=== PATIENT | male | born 1945 | race Caucasian/White ===

== ENCOUNTER → 2024-01-14 08:50 | Outpatient (REF) | payer BC, SELFPAY | LOC: RAD 08:50 | PROVIDERS: ATTENDING PHYSICIAN Otolaryngology; FAMILY PHYSICIAN Internal Medicine | DX: R13.10 Dysphagia, unspecified (principal) | CPT/HCPCS: 74221 ==

== ENCOUNTER 2024-10-17 06:27 | Day surgery (SDC) | payer BC, SELFPAY | END 2024-10-17 09:55 | disposition home or self-care (01) | LOC: GI 06:27 | PROVIDERS: ATTENDING PHYSICIAN Internal Medicine Gastroenterology; FAMILY PHYSICIAN Internal Medicine | DX: K31.7 Polyp of stomach and duodenum (principal); K31.89 Other diseases of stomach and duodenum; R13.10 Dysphagia, unspecified; R12 Heartburn | CPT/HCPCS: 43239; 88305; 88342 ==

== ENCOUNTER 2024-11-07 11:19 | Emergency (ER) | payer BC, SELFPAY ==
[2024-11-07 11:35] VITALS: BP 142/77
--- NOTE | 2024-11-07 13:03 | ED.GENMED ---
History of Present Illness
<FELICE Jensen - Last Filed: 11/07/24 13:04>
General
Chief Complaint: Male Genito-Urinary Symptoms
Time Seen by Provider: 11/07/24 13:03
<Santiago Sams DO - Last Filed: 11/07/24 13:31>
General
Source: patient
Exam Limitations: none
History of Present Illness
History of Present Illness:
See MDM
Past History
<FELICE Jensen - Last Filed: 11/07/24 13:04>
Past History
ED Past Medical History: Arrthythmia (Atrial fibrillation), CAD, Cancer (Renal and prostate), GERD and Hypothyroidism
Social History
Tobacco: Non-smoker
Alcohol: None
Drug: None
Phy Exam
<Santiago Sams, DO - Last Filed: 11/07/24 13:31>
Physical Exam
Physical Exam:
See MDM
Course
<FELICE Jensen - Last Filed: 11/07/24 13:04>
Orders/Labs/Results
Orders:
Orders
11/07/24 11:38
US Scrotum Urgent
Comment:
Reason For Exam: pain
11/07/24 13:12
Urinalysis Reflex To Culture Urgent
Date Specimen was Collected: 11/07/24
Time Specimen was Collected: 13:11
Vital Signs
Initial and Last Documented VS:
Initial Vital Signs
Temp Pulse Resp BP Pulse Ox
97.8 F 69 18 142/77 99
11/07/24 11:35 11/07/24 11:35 11/07/24 11:35 11/07/24 11:35 11/07/24 11:35
Last Documented Vital Signs
Temp Pulse Resp BP Pulse Ox
97.8 F 69 18 142/77 99
11/07/24 11:35 11/07/24 11:35 11/07/24 11:35 11/07/24 11:35 11/07/24 11:35
<Santiago Sams, DO - Last Filed: 11/07/24 13:31>
Orders/Labs/Results
Orders:
Orders
11/07/24 11:38
US Scrotum Urgent
Comment:
Reason For Exam: pain
11/07/24 13:12
Urinalysis Reflex To Culture Urgent
Date Specimen was Collected: 11/07/24
Time Specimen was Collected: 13:11
Vital Signs
Initial and Last Documented VS:
Initial Vital Signs
Temp Pulse Resp BP Pulse Ox
97.8 F 69 18 142/77 99
11/07/24 11:35 11/07/24 11:35 11/07/24 11:35 11/07/24 11:35 11/07/24 11:35
Last Documented Vital Signs
Temp Pulse Resp BP Pulse Ox
97.8 F 69 18 142/77 99
11/07/24 11:35 11/07/24 11:35 11/07/24 11:35 11/07/24 11:35 11/07/24 11:35
<Santiago Sams, DO - Last Filed: 11/07/24 13:31>
MDM/Problems Addressed
Differential Diagnosis Includes:
HPI and MDM Narrative:
79-year-old male presenting with left testicle pain. Has been ongoing for the past several days. He called his PCP and was sent to the emergency department. He denies any pain with defecation or trouble going. He denies any urinary symptoms as
well.
On exam, he does have mild tenderness to the left epididymis and inguinal area. There is no clinical signs of torsion. Symptoms. scrotal ultrasound ordered prior to my evaluation
Physical exam
General: Well appearing and non-toxic
HEENT: protecting airway
Neck: appears supple
CV: No evidence of cyanosis
Resp: No accessory muscle use
Abd: Non-distended
: Mild tenderness left epididymis and inguinal canal. No skin changes. No clinical signs of torsion
Extremities: No deformities
Neuro: alert
Psych: Normal affect
Skin: Intact
Problems Addressed including Acute and Chronic Conditions affecting care:
1. Left testicle pain
Acuity: acute
Prognosis: stable
Details: Ultrasound ordered to rule out any evidence of torsion versus epididymitis
Updates
Ultrasound negative for acute pathology. Given the pain in the inguinal canal, discussed likely hernia and follow-up with surgery. We discussed stool softeners and return precautions
Differential Diagnosis (but not limited to): Discal torsion, epididymitis, inguinal hernia
Testing considered: CT abdomen/pelvis
Drug therapy (if applicable): OTC meds, please see d/c instruction regarding Rx drugs
Amount and/or Complexity of Data Reviewed
Clinical info obtained from: Patient
External data reviewed: N/A
Labs I independently reviewed (but not limited to): Urinalysis negative
Radiology: Ultrasound report reviewed
Pulse Ox: not hypoxic
EKG independently reviewed: N/A
Crusher Loader Operator: N/A
Critical Care: N/A
Risk of Complication:
Social Determinants of health: Good social support
Discussed with other providers: N/A
Escalation of Care includes Admit/Obs: After being observed in the Emergency Department, pt stable for discharge.
Occasional wrong word or 'sound a like' substitutions may have occurred due to the inherent limitations of voice recognition software. Read the chart carefully and recognize, using context, where substitutions have occurred.
<Santiago Sams, DO - Last Filed: 11/07/24 13:31>
*Critical Care Note
Total Time (30-74mins, 75-104mins- exclusive of procedures): Not Applicable
ED Attending Note
<FELICE Jensen - Last Filed: 11/07/24 13:04>
-
Portions of this chart may have been created with voice recognition software.� Occasional wrong word or��sound alike� substitutions may have occurred due to the inherent limitations of voice recognition software.
Discharge Plan
Departure
Patient Disposition: Home (Routine Discharge)
Date of Disposition: 11/07/24
Time of Disposition: 13:28
Patient with high blood pressure during this ER visit?: Yes
Discharge Problem:
Left groin pain
Instructions: BLOOD PRESSURE
Prescriptions:
No Action
levothyroxine 88 MCG tablet
88 mcg PO DAILY
tamsulosin 0.4 MG capsule
0.4 mg PO QPM
gabapentin 100 MG capsule
200 mg PO BID
cholecalciferol (vitamin D3) 1,000 UNITS tablet
1,000 units PO DAILY
clopidogrel 75 MG tablet
75 mg PO DAILY Qty: 90 3RF
loratadine 10 mg Tablet
10 mg PO DAILY
rosuvastatin [Crestor] 20 mg Tablet
20 mg PO DAILY
pantoprazole 40 MG tablet,delayed release (DR/EC)
40 mg PO QPM
Eliquis 5 MG tablet
5 mg PO BID Qty: 0 0RF
Rx Instructions:
Resume tonight 10/09 at 10:00PM
nitroglycerin 0.4 MG tablet, sublingual
0.4 mg sublingual [id number] PRN (Reason: chest pain) Qty: 25 2RF
Referrals:
Reinier Murphy I., [Family Provider] -
Alexys Chavez MD [Active] -
Activity Restrictions/Additional Instructions:
Please return for any worsening symptoms.
You may return at any time if you have further concerns.
Please follow up with your doctor at the first available appointment, preferably this week.
Thank you for choosing [facility].
Please follow-up with the surgeon to further evaluate your groin pain. This could indicate a small hernia.
The ultrasound report: No sonographic evidence for testicular torsion, orchitis, or epididymitis.
Small right-sided varicocele.
1.5 cm cyst within the right epididymal head.
Interventions
Interventions:
*Risk Screen - Suicide Last Done: 11/07/24 11:35
*General Assessment Last Done: 11/07/24 11:35
*Neglect/Abuse Screening Last Done: 11/07/24 11:35
*ED COVID-19 Vaccine History Last Done: 11/07/24 11:35
ED-Male Genitourinary Assessment Last Done: 11/07/24 13:09
Discharge Date and Time
Print Language: NEPALI
[2024-11-07 13:21] LABS: Urine Albumin Negative (Neg - Trace); Urine Bilirubin Negative (Negative); Urine Character Clear (Clear); Urine Color Yellow; Urine Glucose Negative (Negative); Urine Ketone Negative (Negative); Urine Leukocyte Negative (Negative); Urine Nitrite Negative (Negative); Urine Occult Blood Negative (Negative); Urine Urobilinogen Negative (Neg - 1+)
== END 2024-11-07 13:50 | disposition home or self-care (01) ==
LOC: EMR 11:19
PROVIDERS: Nurse Practitioner; EMERGENCY PHYSICIAN Student in an Organized Health Care Education/Training Program; FAMILY PHYSICIAN Internal Medicine
DX: R10.32 Left lower quadrant pain (principal); N50.812 Left testicular pain; I86.1 Scrotal varices; R03.0 Elevated blood-pressure reading, without diagnosis of hypertension; I48.91 Unspecified atrial fibrillation; K21.9 Gastro-esophageal reflux disease without esophagitis; E03.9 Hypothyroidism, unspecified; I25.10 Atherosclerotic heart disease of native coronary artery without angina pectoris; Z85.528 Personal history of other malignant neoplasm of kidney; Z85.46 Personal history of malignant neoplasm of prostate; Z79.01 Long term (current) use of anticoagulants
CPT/HCPCS: 99284; 76870; 81003; 93976